=== PATIENT | female | born 1995 | race Caucasian/White ===

== ENCOUNTER 2017-10-01 17:50 | Inpatient (IN) | payer SELFPAY ==
[~2017-10-01] VITALS: Ht 154.9 cm; Wt 62.7 kg
[2017-10-01 18:05] VITALS: BP 128/88
[2017-10-01] MEDS: RINGERS SOLUTION,LACTATED 1,000 ML IV SCH ×2 (21:10→21:14)
[2017-10-01] MEDS ORDERED: RINGERS SOLUTION,LACTATED 1,000 ML IV SCH (23:14)
[2017-10-01] MEDS ORDERED: OXYTOCIN 30 UNITS/LACT RINGERS 500 ML IV ONE (23:14)
[2017-10-01] MEDS ORDERED: CITRIC ACID/SODIUM CITRATE 30 ML SOLUTION UDCUP PO PRN (23:15)
[2017-10-01] MEDS ORDERED: METOCLOPRAMIDE HCL 5 MG/ML 2 ML VIAL IVP PRN (23:15)
[2017-10-01] MEDS ORDERED: AMPICILLIN SODIUM 2 GM/NS 100 ML IV ONE ×2 (23:30→23:32)
[2017-10-01 23:43] LABS: BASOPHILS % (AUTO) 0.1 % (0.0-2.0); EOSINOPHILS % (AUTO) 0.1 % (1.0-6.0); HEMATOCRIT 29.6 % (36-46); HEMOGLOBIN 9.9 g/dL (12.0-16.0); LYMPHOCYTES # (AUTO) 1.2 K/uL (1.0-4.8); LYMPHOCYTES % (AUTO) 12.4 % (22.0-44.0); MEAN CORPUSCULAR HEMOGLOBIN 23.8 pg (26.0-34.0); MEAN CORPUSCULAR HGB CONC 33.6 G/dL (31.0-37.0); MEAN CORPUSCULAR VOLUME 71 fL (80-100); MONOCYTES # (AUTO) 0.5 K/uL (0.1-1.0); MONOCYTES % (AUTO) 4.9 % (2.0-9.0); NEUTROPHILS # (AUTO) 7.7 K/uL (1.8-7.7); NEUTROPHILS % (AUTO) 82.5 % (40.0-70.0); RED BLOOD CELL COUNT(AUTO) 4.19 MIL/uL (4.00-5.20); RED CELL DISTRIBUTION WIDTH 16.4 % (11.5-14.5)
[2017-10-02 00:01] LABS: PLATELET COUNT (AUTO)-OB 80 K/uL (150-450); PLATELET MORPHOLOGY COMMENT GIANT PLTS PRESENT
[2017-10-02 00:39] LABS: RUBELLA SCREEN (IGG) IMMUNE (IMMUNE)
[2017-10-02] MEDS: FentaNYL CITRATE-PF 100 MCG/2 ML VIAL IVP PRN ×2 (00:55→00:56)
[2017-10-02] MEDS ORDERED: PREN1TAB26 PO (02:28)
[2017-10-02] MEDS ORDERED: FERR134T2 PO (02:28)
[2017-10-02] MEDS ORDERED: AMPICILLIN SODIUM 1 GM/NS 50 ML IV SCH (03:30)
[2017-10-02] MEDS ORDERED: LIDOCAINE HCL/PF 1% 30 ML VIAL ONE (04:35)
[2017-10-02] MEDS ORDERED: OXYTOCIN 20 UNITS/LACT RINGERS 1,000 ML IV ONE (06:41)
[2017-10-02] MEDS ORDERED: OXYTOCIN 20 UNITS/LACT RINGERS 1,000 ML IV SCH (06:42)
[2017-10-02] MEDS ORDERED: LANOLIN 7 GM OINTMENT TP PRN (06:45)
[2017-10-02] MEDS ORDERED: ACETAMINOPHEN/CODEINE 300-30 MG TABLET PO PRN (06:45)
[2017-10-02] MEDS ORDERED: GLYCERIN/WITCH HAZEL LEAF 40 PADS JAR TP PRN (06:45)
[2017-10-02] MEDS ORDERED: SENNA/DOCUSATE SODIUM 187-50 MG TABLET PO PRN (06:45)
[2017-10-02] MEDS ORDERED: BENZOCAINE 20%/MENTHOL 56 GM SPRAY CANISTER TP PRN (06:45)
[2017-10-02] MEDS ORDERED: OXYGEN THERAPY IH SCH (08:00)
[2017-10-02] MEDS: IBUPROFEN 600 MG TABLET PO PRN ×2 (08:26→16:50)
[2017-10-02] MEDS: MAGNESIUM HYDROXIDE SUSPENSION 30 ML UDCUP PO PRN ×2 (08:32→21:02)
[2017-10-02 20:46] VITALS: BP 125/65
[2017-10-03 07:04] LABS: BASOPHILS % (AUTO) 0.1 % (0.0-2.0); EOSINOPHILS % (AUTO) 0.2 % (1.0-6.0); HEMATOCRIT 24.9 % (36-46); HEMOGLOBIN 8.5 g/dL (12.0-16.0); LYMPHOCYTES # (AUTO) 1.8 K/uL (1.0-4.8); LYMPHOCYTES % (AUTO) 13.6 % (22.0-44.0); MEAN CORPUSCULAR HEMOGLOBIN 24.2 pg (26.0-34.0); MEAN CORPUSCULAR VOLUME 71 fL (80-100); MONOCYTES # (AUTO) 0.7 K/uL (0.1-1.0); MONOCYTES % (AUTO) 5.6 % (2.0-9.0); NEUTROPHILS # (AUTO) 10.6 K/uL (1.8-7.7); NEUTROPHILS % (AUTO) 80.5 % (40.0-70.0); RED BLOOD CELL COUNT(AUTO) 3.51 MIL/uL (4.00-5.20); RED CELL DISTRIBUTION WIDTH 16.5 % (11.5-14.5)
[2017-10-03 07:07] LABS: PLATELET COUNT (AUTO)-OB 71 K/uL (150-450)
[2017-10-03 07:08] LABS: PLATELET MORPHOLOGY COMMENT GIANT PLTS PRESENT
[2017-10-03] MEDS ORDERED: IBUP-2071 PO (08:56)
[2017-10-03] MEDS ORDERED: DSS100 PO (08:57)
[2017-10-03] MEDS ORDERED: FERR-89 PO (08:59)
== END 2017-10-03 14:25 | disposition home or self-care (01) | DRG 775 ==
LOC: OBSVTOIN 17:50 → EDBD 17:50 → 4S 17:50
PROVIDERS: ADMIT Obstetrics & Gynecology; ATTEND Obstetrics & Gynecology
PROC: 10E0XZZ Delivery of Products of Conception, External Approach (ICD-10-PCS; principal; 2017-10-02)
PROC: 0KQM0ZZ Repair Perineum Muscle, Open Approach (ICD-10-PCS; 2017-10-02)
PROC: 0W8NXZZ Division of Female Perineum, External Approach (ICD-10-PCS; 2017-10-02)
DX: O69.81X0 Labor and delivery complicated by cord around neck, without compression, not applicable or unspecified (principal); O70.1 Second degree perineal laceration during delivery; Z37.0 Single live birth; Z3A.40 40 weeks gestation of pregnancy
CPT/HCPCS: 76805; 80307; 86592; 86762; 86850; 86900; 86901; 87340; J0290; J2590; J3010; J3490; J7120